=== PATIENT | male | born 1985 | race Caucasian/White ===

== ENCOUNTER 2017-02-12 04:44 | Emergency (ER) | payer BC, OTHER ==
[2017-02-12] MEDS ORDERED: HYDROmorphone 1 MG/ML Syringe IVPUSH PRN (04:51)
[2017-02-12] MEDS ORDERED: Ketorolac 30 MG/ML SDV IVPUSH ONE (04:51)
[2017-02-12] MEDS ORDERED: Ondansetron 4 MG/2 ML SDV IVPUSH ONE (04:51)
[2017-02-12] MEDS ORDERED: Sodium Chloride 0.9% 1,000 ML IV ONE ×2 (04:51→05:57)
[2017-02-12 05:03] VITALS: BP 167/101
--- NOTE | 2017-02-12 06:32 | EDM.PDOC ---
ED HPI GENERAL MEDICAL PROBLEM - General Chief Complaint: Abdominal Pain Stated Complaint: FLANK PAIN Time Seen by Provider: 02/12/17 04:47 Source of Information: Reports: Patient History Limitations: Reports: No Limitations - History of Present Illness INITIAL COMMENTS - FREE TEXT/NARRATIVE: 31 y/o previously healthy male with sudden onset L flank pain during the night tonight. No provoking factor. Woke him from sleep. Describes sharp severe L flank pain radiating to groin area. No relieving factors. Nauseated, vomited once. NO diarrhea. No fever. No dysuria/hematuria. No hx prior similar symptoms. Left Flank Pain Score (Numeric/FACES): 10 - Related Data Allergies Allergy/AdvReac Type Severity Reaction Status Date / Time No Known Allergies Allergy Verified 02/12/17 05:03 Home Meds: Home Meds Levothyroxine [Synthroid] 50 mcg PO DAILY 02/12/17 [History] Past Medical History - Past Health History Medical/Surgical History: Denies Medical/Surgical History Social & Family History - Family History Family Medical History: Noncontributory - Tobacco Use Smoking Status *Q: Never Smoker - Alcohol Use Days Per Week of Alcohol Use: 0 (Rare.) - Recreational Drug Use Recreational Drug Use: No ED ROS GENERAL - Review of Systems Review Of Systems: See Below Constitutional: Denies: Fever HEENT: Reports: No Symptoms Respiratory: Denies: Cough Cardiovascular: Denies: Chest Pain Endocrine: Reports: No Symptoms GI/Abdominal: Reports: Abdominal Pain, Nausea : Reports: Flank Pain. Denies: Dysuria Musculoskeletal: Reports: No Symptoms Skin: Reports: No Symptoms Neurological: Reports: No Symptoms ED EXAM, RENAL/ - Physical Exam Exam: See Below Exam Limited By: No Limitations General Appearance: Alert, Moderate Distress, Other (diaphoretic) Eye Exam: Bilateral Eye: Normal Inspection Ears: Normal External Exam Nose: Normal Inspection Throat/Mouth: Normal Inspection, Normal Oropharynx, No Airway Compromise Head: Atraumatic, Normocephalic Neck: Normal Inspection, Supple Respiratory/Chest: No Respiratory Distress, Lungs Clear, Normal Breath Sounds, No Accessory Muscle Use Cardiovascular: Regular Rate, Rhythm, No Murmur GI/Abdominal: Soft, Other (LLQ and LUQ TTP, no rebound/guarding) Back Exam: CVA Tenderness (L). No: CVA Tenderness (R) Extremities: Normal Inspection Neurological: Alert, Oriented, Normal Cognition Psychiatric: Normal Affect, Normal Mood Skin Exam: Warm, Dry, Intact, Normal Color, No Rash Course - Vital Signs Last Recorded V/S: Last Vital Signs Temp 36.9 C 02/12/17 04:57 Pulse 89 02/12/17 04:57 Resp 18 02/12/17 04:57 BP 167/101 H 02/12/17 04:57 Pulse Ox 100 02/12/17 04:57 - Orders/Labs/Meds Orders: Active Orders 24 hr Category Date Time Status Abdomen Pelvis wo Cont [CT] Stat Exams 02/12/17 04:51 Taken HYDROmorphone [Dilaudid] Med 02/12/17 04:51 Active 1 mg IVPUSH Q1H PRN Sodium Chloride 0.9% [Normal Saline] 1,000 ml Med 02/12/17 05:57 Active IV ONETIME Medication Orders Hydromorphone HCl (Dilaudid) 1 mg IVPUSH Q1H PRN PRN Reason: Pain Last Admin: 02/12/17 05:16 Dose: 1 mg Sodium Chloride (Normal Saline) 1,000 mls @ 1,000 mls/hr IV ONETIME ONE Stop: 02/12/17 06:56 Last Admin: 02/12/17 06:14 Dose: 1,000 mls/hr Labs: Laboratory Tests 02/12/17 02/12/17 02/12/17 Range/Units 04:54 04:54 06:10 WBC 8.82 (4.23-9.07) K/mm3 RBC 5.30 (4.63-6.08) M/mm3 Hgb 15.7 (13.7-17.5) gm/L Hct 46.0 (40.1-51.0) % MCV 86.8 (79.0-92.2) fl MCH 29.6 (25.7-32.2) pg MCHC 34.1 (32.2-35.5) g/dl RDW Std Deviation 40.6 (35.1-43.9) fL Plt Count 313 (163-337) K/mm3 MPV 8.8 L (9.4-12.3) fl Neut % (Auto) 48.1 (34.0-67.9) % Lymph % (Auto) 36.4 (21.8-53.1) % [place] % (Auto) 11.3 (5.3-12.2) % Eos % (Auto) 3.4 (0.8-7.0) Baso % (Auto) 0.6 (0.1-1.2) % Neut # (Auto) 4.24 (1.78-5.38) K/mm3 Lymph # (Auto) 3.21 (1.32-3.57) K/mm3 [place] # (Auto) 1.00 H (0.30-0.82) K/mm3 Eos # (Auto) 0.30 (0.04-0.54) K/mm3 Baso # (Auto) 0.05 (0.01-0.08) K/mm3 Sodium 143 (136-145) mEq/L Potassium 3.9 (3.5-5.1) mEq/L Chloride 104 (98-107) mEq/L Carbon Dioxide 30 (21-32) mEq/L Anion Gap 12.9 (5-15) BUN 21 H (7-18) mg/dL Creatinine 1.2 (0.7-1.3) mg/dL Est Cr Clr Drug Dosing TNP Estimated GFR (MDRD) > 60 (>60) mL/min BUN/Creatinine Ratio 17.5 (14-18) Glucose 128 H (74-106) mg/dL Calcium 9.1 (8.5-10.1) mg/dL Total Bilirubin 0.4 (0.2-1.0) mg/dL AST 23 (15-37) U/L ALT 43 (16-63) U/L Alkaline Phosphatase 77 (46-116) U/L Total Protein 7.6 (6.4-8.2) g/dl Albumin 4.2 (3.4-5.0) g/dl Globulin 3.4 gm/dL Albumin/Globulin Ratio 1.2 (1-2) Lipase 123 (73-393) U/L Urine Color Yellow (Yellow) Urine Appearance Clear (Clear) Urine pH 6.0 (5.0-8.0) Ur Specific [place] > or = 1.030 (1.005-1.030) Urine Protein Trace H (Negative) Urine Glucose (UA) Negative (Negative) Urine Ketones Trace H (Negative) Urine Occult Blood 2+ H (Negative) Urine Nitrite Negative (Negative) Urine Bilirubin Negative (Negative) Urine Urobilinogen 0.2 (0.2-1.0) Ur Leukocyte Esterase Negative (Negative) Urine RBC 5-10 H (0-5) /hpf Urine WBC 0-5 (0-5) /hpf Ur Epithelial Cells 0-5 (0-5) /hpf Urine Bacteria Moderate H (FEW) /hpf Hyaline Casts 0-5 (0-5) /lpf Urine Mucus Few (FEW) /hpf Meds: Medications Generic Name Dose Route Start Last Admin Trade Name Freq PRN Reason Stop Dose Admin Hydromorphone HCl 1 mg 02/12/17 04:51 02/12/17 05:16 Dilaudid IVPUSH 1 mg Q1H PRN Administration Pain Sodium Chloride 1,000 mls @ 1,000 mls/hr 02/12/17 05:57 02/12/17 06:14 Normal Saline IV 02/12/17 06:56 1,000 mls/hr ONETIME ONE Administration Discontinued Medications Generic Name Dose Route Start Last Admin Trade Name Freq PRN Reason Stop Dose Admin Sodium Chloride 1,000 mls @ 1,000 mls/hr 02/12/17 04:51 02/12/17 05:00 Normal Saline IV 02/12/17 05:50 1,000 mls/hr ONETIME ONE Administration Ketorolac Tromethamine 30 mg 02/12/17 04:51 02/12/17 05:03 Toradol IVPUSH 02/12/17 04:52 30 mg ONETIME ONE Administration Ondansetron HCl 4 mg 02/12/17 04:51 02/12/17 05:02 Zofran IVPUSH 02/12/17 04:52 4 mg ONETIME ONE Administration - Re-Assessments/Exams Free Text/Narrative Re-Assessment/Exam: 02/12/17 06:29 Labs show +hematuria. CT a/p shows 2mm stone in the bladder. Upon reeval, patient is pain-free. It appears he just passed the stone. Counselled him at length. Will discharge, discussed return precautions. Departure - Departure Time of Disposition: 06:30 Disposition: Home, Self-Care 01 Clinical Impression: Ureterolithiasis - Discharge Information Referrals: Ottoniel Cai MD [Primary Care Provider] - Additional Instructions: Drink plenty of fluids. Follow up with a regular doctor as needed. Call [phone] if you'd like to schedule with a provider here. Return to the ED if you have severe pain, vomiting without keeping liquids down, or any other concerning symptoms. - My Orders Last 24 Hours: My Active Orders 02/12/17 04:51 Abdomen Pelvis wo Cont [CT] Stat HYDROmorphone [Dilaudid] 1 mg IVPUSH Q1H PRN 02/12/17 05:57 Sodium Chloride 0.9% [Normal Saline] 1,000 ml IV ONETIME - Assessment/Plan Last 24 Hours: My Active Orders 02/12/17 04:51 Abdomen Pelvis wo Cont [CT] Stat HYDROmorphone [Dilaudid] 1 mg IVPUSH Q1H PRN 02/12/17 05:57 Sodium Chloride 0.9% [Normal Saline] 1,000 ml IV ONETIME
--- NOTE | 2017-02-12 11:43 | CT ---
CT abdomen and pelvis Technique: Multiple axial sections were obtained from above the dome of the diaphragm inferiorly through the pubic symphysis. Intravenous and oral contrast has not been given. Study was performed as a ureteral stone protocol. Comparison: Left kidney appears slightly swollen. Left ureter is mildly prominent. No ureteral calculi are seen. There is a stone being seen within the bladder within its dependent portion. Stone measures approximately 3 mm. This stone likely is due to recently passed left ureteral stone given the left-sided renal findings. Nonobstructing calculus noted within the left kidney measuring 4.5 mm in size. No other abnormal calcifications are identified within the kidneys. Small portion of the visualized lung bases are clear. Noncontrast appearance of the liver and spleen appear within normal limits. Gallbladder shows no calcified gallstones. No adrenal nodule is seen. Pancreas appears within normal limits. Aorta shows no aneurysmal dilatation. No retroperitoneal adenopathy or mesenteric abnormalities are seen. Small fat-containing umbilical hernia is incidentally noted. No pelvic mass or adenopathy is seen. Appendix not definitely identified. Bone window settings were reviewed which appear within normal limits for the patient's age. Impression: 1. Small 3 mm calcification within the dependent portion of the bladder most likely representing left ureteral stone that has recently passed. Please correlate if this matches patient's symptoms. 2. Other incidental findings as noted above. Diagnostic code #3 I agree with preliminary report issued by [facility] ([facility] report finalized on 02/12/17, 6:50 AM Central Time)
== END 2017-02-12 07:03 | disposition home or self-care (01) ==
LOC: JD.ED 04:44
DX: N20.1 Calculus of ureter (principal)
CPT/HCPCS: 36415; 74176; 80053; 81001; 83690; 85025; 96361; 96374; 96375; 99284; J1170; J1885; J2405; J7040